=== PATIENT | male | born 1940 | race African-American/Black ===

== ENCOUNTER 2018-03-30 03:29 | Emergency (ER) | payer SELFPAY ==
[2018-03-30] MEDS ORDERED: MECLIZINE HCL 25 MG TABLET PO ONE (04:12)
[2018-03-30] MEDS ORDERED: PENICILLIN V POTASSIUM 500 MG TABLET PO ONE (04:12)
--- NOTE | 2018-03-30 04:13 | ER Document Report ---
ED Dizziness/Weakness - General Chief Complaint: Dizziness Stated Complaint: DIZZINESS Time Seen by Provider: 03/30/18 03:59 Mode of Arrival: Ambulatory Information source: Patient Notes: Patient presents complaining of dental infection for the past 4 days. Patient states that due to his dental infection he has been having episodes of feeling clammy over the past 2 days. Patient additionally reports that occasionally he will feel off balance. Patient is concerned that he is getting a systemic infection from his dental infection. Patient also attributes the occasional feeling of being off balance due to cataracts. Patient denies any chest pain, shortness of breath, nausea or vomiting. Patient denies any fever. Patient denies any cough or cold symptoms. Patient states he has tasted purulent drainage in his mouth from the abscess. TRAVEL OUTSIDE OF THE [place] IN LAST 30 DAYS: No - HPI Patient complains to provider of: Dizziness. No: Syncope, Weakness Onset: Other - Dental pain 4 days, off balance sensation 2 days Onset/Duration: Waxing and waning Pain Level: Denies Associated symptoms: Vertigo. denies: Chest pain, Confused, Diarrhea, Ear pain , Fainted, Headache, Nausea, Short of breath, Vomiting Baseline gait: Walks w/o assistance - Related Data Allergies/Adverse Reactions: shrimp Allergy (Verified 03/30/18 04:02) Past Medical History - General Information source: Patient - Social History Smoking Status: Never Smoker Chew tobacco use (# tins/day): No Frequency of alcohol use: None Drug Abuse: None Occupation: Retired Lives with: Family Family History: Reviewed & Not Pertinent Patient has suicidal ideation: No Patient has homicidal ideation: No - Medical History Medical History: Negative Renal/ Medical History: Denies: Hx Peritoneal Dialysis Past Surgical History: Reports: Hx Orthopedic Surgery Review of Systems - Review of Systems Constitutional: No symptoms reported. denies: Fever, Recent illness EENT: Dental problem. denies: Ear pain, Nose congestion, Nose discharge, Sinus pressure, Sinus discharge Cardiovascular: Dizziness. denies: Chest pain, Palpitations Respiratory: No symptoms reported. denies: Cough, Short of breath Gastrointestinal: No symptoms reported. denies: Abdominal pain, Nausea, Vomiting Genitourinary: No symptoms reported Male Genitourinary: No symptoms reported Musculoskeletal: No symptoms reported. denies: Back pain Skin: No symptoms reported Hematologic/Lymphatic: No symptoms reported Neurological/Psychological: No symptoms reported. denies: Confusion, Weakness, Lost consciousness, Headaches Physical Exam - Vital signs Vitals: Temp Pulse Resp BP Pulse Ox 97.9 F 75 20 143/75 H 97 03/30/18 03:49 03/30/18 03:49 03/30/18 03:49 03/30/18 03:49 03/30/18 03:49 - General General appearance: Appears well, Alert In distress: None - HEENT Head: Normocephalic, Atraumatic Eyes: Normal Conjunctiva: Normal Pupils: PERRL Ears: Normal External canal: Normal Mouth/Lips: Caries, Other - dental abscess Teeth diagram: 1 - dental abscess Neck: Normal, Supple. No: Lymphadenopathy - Respiratory Respiratory status: No respiratory distress Chest status: Nontender Breath sounds: Normal. No: Rales, Rhonchi, Stridor, Wheezing Chest palpation: Normal - Cardiovascular Rhythm: Regular Heart sounds: S1 appreciated, S2 appreciated Murmur: No - Abdominal Inspection: Normal Distension: No distension Tenderness: Nontender - Back Back: Normal, Nontender - Extremities General upper extremity: Normal inspection, Normal ROM General lower extremity: Normal inspection, Normal ROM - Neurological Neuro grossly intact: Yes Cognition: Normal [place] Coma Scale Eye Opening: Spontaneous [place] Coma Scale Verbal: Oriented [place] Coma Scale Motor: Obeys Commands [place] Coma Scale Total: 15 - Psychological Associated symptoms: Normal affect, Normal mood - Skin Skin Temperature: Warm Skin Moisture: Dry Skin Color: Normal Course - Re-evaluation Re-evalutation: 03/30/18 06:09 Patient denies any lightheadedness or dizziness. Patient denies any chest pain or shortness of breath. Patient was advised of his elevated renal function test and encouraged to follow-up with the primary doctor to have this test reevaluated. - Vital Signs Vital signs: Temp Pulse Resp BP Pulse Ox 97.9 F 75 20 143/75 H 97 03/30/18 03:49 03/30/18 03:49 03/30/18 03:49 03/30/18 03:49 03/30/18 03:49 - Laboratory Result Diagrams: 03/30/18 04:30 03/30/18 04:30 Laboratory results interpreted by me: 03/30/18 04:30 Creatinine 1.39 H Est GFR (Non-Af Amer) 50 L Glucose 111 H Labs- Entire Visit 03/30/18 03/30/18 03/30/18 04:30 04:30 04:30 WBC 10.2 RBC 4.76 Hgb 14.3 Hct 42.4 MCV 89 MCH 30.1 MCHC 33.8 RDW 13.4 Plt Count 288 Seg Neutrophils % 67.0 Lymphocytes % 25.3 Monocytes % 5.4 Eosinophils % 1.6 Basophils % 0.7 Absolute Neutrophils 6.8 Absolute Lymphocytes 2.6 Absolute Monocytes 0.5 Absolute Eosinophils 0.2 Absolute Basophils 0.1 Sodium 142.3 Potassium 4.1 Chloride 101 Carbon Dioxide 26 Anion Gap 15 BUN 18 Creatinine 1.39 H Est GFR ( Amer) > 60 Est GFR (Non-Af Amer) 50 L Glucose 111 H Calcium 9.5 Magnesium 2.1 Total Bilirubin 0.8 Direct Bilirubin 0.3 Neonat Total Bilirubin Not Reportable Neonat Direct Bilirubin Not Reportable Neonat Indirect Bili Not Reportable AST 25 ALT 29 Alkaline Phosphatase 60 Troponin I < 0.012 Total Protein 7.5 Albumin 4.3 - Diagnostic Test Radiology reviewed: Reports reviewed Procedures - Incision and Drainage Face Type: Simple Incision Method: Incision made with needle Amount/type of drainage: Small amount of purulent drainage from dental abscess Mouth/Teeth picture: 1 - Dental abscess Discharge - Discharge Clinical Impression: Dental abscess, Dizziness Condition: Stable Disposition: HOME, SELF-CARE Instructions: Dental Infection or Abscess ([facility]), Meclizine ([facility]), Penicillin V K ([facility]), Vertigo ([facility]) Additional Instructions: Return immediately for any new or worsening symptoms Followup with your primary care provider, call tomorrow to make a followup appointment Your renal function test was slightly abnormal. You should follow-up with her primary doctor to have this rechecked in a week. Follow-up with a dental care provider Prescriptions: Meclizine HCl [Antivert 25 mg Tablet] 25 mg PO ASDIR PRN #12 tablet PRN Reason: Penicillin V Potassium [Penicillin Vk 500 mg Tablet] 500 mg PO BID #20 tablet Referrals: [facility] [Provider Group] - Follow up as needed [facility] [Provider Group] - Follow up tomorrow [facility] [Provider Group] - Follow up tomorrow
[2018-03-30 04:45] LABS: ABSOLUTE BASOPHILS # (AUTO) 0.1 10^3/uL (0.0-0.2); ABSOLUTE EOSINOPHILS # (AUTO) 0.2 10^3/uL (0.0-0.6); ABSOLUTE LYMPHOCYTES (AUTO) 2.6 10^3/uL (0.5-4.7); ABSOLUTE MONOCYTES (AUTO) 0.5 10^3/uL (0.1-1.4); ABSOLUTE NEUT (AUTO) 6.8 10^3/uL (1.7-8.2); BASOPHILS % (AUTO) 0.7 % (0-2); EOSINOPHILS % (AUTO) 1.6 % (0-6); HEMATOCRIT 42.4 % (37.9-51.0); HEMOGLOBIN 14.3 g/dL (13.5-17.0); LYMPHOCYTES % (AUTO) 25.3 % (13-45); MEAN CORPUSCULAR HEMOGLOBIN 30.1 pg (27.0-33.4); MEAN CORPUSCULAR HGB CONC 33.8 g/dL (32.0-36.0); MEAN CORPUSCULAR VOLUME 89 fl (80-97); MONOCYTES % (AUTO) 5.4 % (3-13); PLATELET COUNT 288 10^3/uL (150-450); RED BLOOD COUNT 4.76 10^6/uL (4.35-5.55); RED CELL DISTRIBUTION WIDTH 13.4 % (11.5-14.0); TOTAL CELLS COUNTED % (AUTO) 100 %; WHITE BLOOD COUNT 10.2 10^3/uL (4.0-10.5)
[2018-03-30 05:04] LABS: ALANINE AMINOTRANSFERASE 29 U/L (21-72); ALBUMIN 4.3 g/dL (3.5-5.0); ALKALINE PHOSPHATASE 60 U/L (38-126); ANION GAP 15 (5-19); ASPARTATE AMINO TRANSFERASE 25 U/L (17-59); BILIRUBIN,DIRECT 0.3 mg/dL (0.0-0.4); BILIRUBIN,TOTAL 0.8 mg/dL (0.2-1.3); BLOOD UREA NITROGEN 18 mg/dL (7-20); CALCIUM 9.5 mg/dL (8.4-10.2); CARBON DIOXIDE 26 mmol/L (22-30); CHLORIDE 101 mmol/L (98-107); GLUCOSE 111 mg/dL (75-110); POTASSIUM 4.1 mmol/L (3.6-5.0); SODIUM 142.3 mmol/L (137-145); TOTAL PROTEIN 7.5 g/dL (6.3-8.2)
--- NOTE | 2018-03-30 05:07 | RADIOLOGY REPORT (SQ) ---
EXAM DESCRIPTION: CHEST SINGLE VIEW CLINICAL HISTORY: dizziness COMPARISON: None. FINDINGS: Single frontal view of the chest. The cardiomediastinal silhouette has normal size and contour. No consolidation, pneumothorax, or pleural effusion. No displaced rib fractures identified. Upper abdominal soft tissues are unremarkable. IMPRESSION: 1. No acute pulmonary process identified.
[2018-03-30 06:24] VITALS: BP 146/81
--- NOTE | 2018-03-30 07:37 | EKG REPORT ---
SEVERITY:- NORMAL ECG - SINUS RHYTHM : Confirmed by: Hayder Dale MD 30-Mar-2018 07:36:45
== END 2018-03-30 06:23 | disposition home or self-care (01) ==
LOC: ER 03:29
DX: K04.7 Periapical abscess without sinus (principal); K02.9 Dental caries, unspecified; R42 Dizziness and giddiness; Z91.013 Allergy to seafood
CPT/HCPCS: 36415; 71045; 80053; 83735; 84484; 85025; 93005; 93010; 99284